=== PATIENT | female | born 2000 | race Caucasian/White ===

== ENCOUNTER 2018-06-06 16:40 | Outpatient (CLI) | payer MEDICAID, SELFPAY ==
[2018-06-06 17:04] VITALS: BMI 61.8
[2018-06-06 17:55] LABS: Hematocrit 32.1 % (37-47); Hemoglobin 10.9 g/dl (12.0-15.0); Mean Corpuscular Hgb 29.1 pg (27.0-32.0); Mean Corpuscular Volume 85.6 fL (81-99); Mean Platelet Vol. 11.2 fl (6.2-12.0); Platelet Count 205 K/mm3 (150-450); RBC Distribution Width CV 13.4 % (11.6-14.6); RBC Distribution Width SD 41.6 fl (35.1-43.9); Red Blood Count 3.75 M/mm3 (4.2-5.4); White Blood Count 7.6 K/mm3 (4.4-11.0)
[2018-06-06 18:06] LABS: Scan Indicated on CBC? Y/N NO
--- NOTE | 2018-06-06 18:27 | OB.TRI.NOTE ---
History of Present Illness Date of Service: 06/06/18 Was patient seen by the physician?: Yes Reason For Visit: R/O PREECLAMPSIA Date of Service: 06/06/18 Final FE: 07/08/18 Final FE Source: US <20 weeks Gestational age: 35 Weeks and 3 Days History of Present Illness: 18yo @ 35.3 wks here with complaints of Headache and vomiting. pt was seen in ER and sent to L&D for evaluation. pt reports headache is frontal between her eyes. denies changes with vision and URI symptoms. Pt reports good FM. denies VB, LOF, contractions- denies any RUQ pain. Allergies No Known Allergies Allergy (Verified 05/22/17 02:15) Laboratory Studies: Laboratory Tests 06/06/18 06/06/18 Range/Units 17:15 17:15 WBC 7.6 (4.4-11.0) K/mm3 RBC 3.75 L (4.2-5.4) M/mm3 Hgb 10.9 L (12.0-15.0) g/dl Hct 32.1 L (37-47) % MCV 85.6 (81-99) fL MCH 29.1 (27.0-32.0) pg MCHC 34.0 (32-36) g/gl RDW 13.4 (11.6-14.6) % RDW Differential 41.6 (35.1-43.9) fl Plt Count 205 (150-450) K/mm3 MPV 11.2 (6.2-12.0) fl PT 13.1 (11.7-14.9) SECONDS INR 1.0 APTT 27.2 (24.1-36.2) Seconds Review of Systems Constitutional: Denies: Anorexia, Malaise Eyes: Reports: Pain. Denies: Blurred vision, Double vision, Vision Change HEENT: Denies: Nasal Congestion, Sinus Congestion Cardiovascular: Denies: Chest Pain Respiratory: Denies: Cough, Shortness of Breath Gastrointestinal: Denies: Abdominal Pain Neurological: Reports: Headaches - frontal. Denies: Blurred vision Physical Exam General: Alert, Oriented x3 Abdomen: Soft, Non Tender, Gravid, - - NO RUQ pain on palpation Neurological: Cranial nerves II-XII grossly intact NST - FHR Rate Baby A Baseline: 130 Variability:: Moderate Accelerations:: 15 x 15 Decelerations:: None NST Reactive:: Yes FHR Category:: Category I Uterine Activity:: no ctx Impression/Plan 18yo @ 35.3 wks c/o headache in 1) pre eclampsia labs drawn 2) monitor VS 3) if VS stable and labs wnl will dc home with follow up in office this week by 06/08/18 for BP check 4) s/sx of PRE E reviewed with patient 5) tylenol 1g q8 hrs reviewed for Headache 6) NST reactive and category 1
[2018-06-06 18:29] LABS: Partial Thromboplast Time 27.2 Seconds (24.1-36.2); Prothrombin Time (Protime)PT. 13.1 SECONDS (11.7-14.9)
[2018-06-06 18:30] LABS: AST(SGOT) 8 U/L (15-37); Alanine Aminotransfer ALT/SGPT 11 U/L (13-56); Creatinine, Serum 0.41 mg/dL (0.55-1.02); EST Glomerular Filtration Rate 210 mL/min (>60); Est Glom Filt Rate - Afr Amer 254 mL/min (>60); Uric Acid 5.1 mg/dL (2.6-6.0)
[2018-06-06 18:30] LABS: Protein, Urine (Random) 14.3 mg/dL (<11.9); Protein:Creat Ratio 231 mg/g CRE (0-200)
== END 2018-06-06 19:00 | disposition home or self-care (01) ==
LOC: WPOUT 16:49 → WP 16:49
PROVIDERS: Family Provider Pediatrics; PCP Pediatrics; Referring Provider Obstetrics & Gynecology; Visit Provider Obstetrics & Gynecology
DX: O26.893 Other specified pregnancy related conditions, third trimester (principal); R51 Headache; O21.9 Vomiting of pregnancy, unspecified; Z3A.35 35 weeks gestation of pregnancy
CPT/HCPCS: 36415; 59025; 59050; 82565; 82570; 84156; 84450; 84460; 84550; 85027; 85610; 85730; 99218; G0378

== ENCOUNTER 2018-06-22 14:30 | Inpatient (IN) | payer MEDICAID, SELFPAY ==
[2018-06-22] MEDS: Lactated Ringers 1,000 ML 50 ML IV (14:00)
[2018-06-22 16:03] LABS: Protein, Urine (Random) 33.7 mg/dL (<11.9); Protein:Creat Ratio 205 mg/g CRE (0-200)
[2018-06-22 16:24] LABS: Hemoglobin 10.4 g/dl (12.0-15.0); Mean Corp Hgb Conc 33.5 g/gl (32-36); Mean Corpuscular Hgb 29.1 pg (27.0-32.0); Mean Corpuscular Volume 86.6 fL (81-99); Mean Platelet Vol. 11.8 fl (6.2-12.0); Platelet Count 178 K/mm3 (150-450); RBC Distribution Width CV 13.5 % (11.6-14.6); RBC Distribution Width SD 42.7 fl (35.1-43.9); Red Blood Count 3.58 M/mm3 (4.2-5.4); Scan Indicated on CBC? Y/N NO; White Blood Count 6.1 K/mm3 (4.4-11.0)
[2018-06-22 16:26] LABS: AST(SGOT) 10 U/L (15-37); Alanine Aminotransfer ALT/SGPT 16 U/L (13-56); Creatinine, Serum 0.51 mg/dL (0.55-1.02); EST Glomerular Filtration Rate 162 mL/min (>60); Est Glom Filt Rate - Afr Amer 196 mL/min (>60); Uric Acid 6.1 mg/dL (2.6-6.0)
[2018-06-22 16:27] LABS: Partial Thromboplast Time 27.5 Seconds (24.1-36.2)
--- NOTE | 2018-06-22 17:54 | HP.PCM_ITS ---
- Problem List (1) Obesity complicating Status: Acute (2) Gestational HTN Status: Acute (3) Positive GBS test Status: Acute (4) Anxiety during Status: Acute (5) Cystic fibrosis carrier Status: Acute (6) Rubella non-immune status, antepartum Status: Acute History Date of Admission: 06/22/18 Final FE: 07/08/18 Final FE Source: US <20 weeks Gestational age: 37 Weeks and 5 Days History of this : This is a 18 year-old, G [1], P [0], at 37w5d weeks gestational age. Presented to office today for visit with elevated BP 140/92, complaint of he adache unrelieved by Tylenol and RUQ pain. Patient has been non compliant with care after 31 weeks with missed appointments. Patient diagnosed with Gestational HTN and sent to L&D for IOL. Allergies No Known Allergies Allergy (Verified 05/22/17 02:15) Home Medications: Home Medications Vits [Prenatabs FA] 1 tablet PO DAILY 06/06/18 Smoking Status: Current some day smoker Alcohol: None Number of Fetus(es): 1 Heart Tracin, moderate variability, accels, no decels, Category 1 FHT TOCO Analysis: None History Past Pregnancies: Past Pregnancies Delivery Date Name GA/Weeks Outcome Route Weight Infant Gender Labor Length Anesthesia Delivery Location Provider FOB Labs: GBS negative HIV negative Rubella non immune RPR negative HBsAG negative AB positive Cystic fibrosis Review of Systems Constitutional: Denies: Chills, Fever, Weight Change Eyes: Denies: Blurred vision, Vision Change HEENT: Reports: Head Aches. Denies: Sinus Congestion, Sinus Drainage Cardiovascular: Denies: Chest Pain, Palpitations Respiratory: Denies: Cough, Shortness of breath at rest, Sputum production Gastrointestinal: Reports: Abdominal Pain - RUQ abdominal tenderness Genitourinary: Denies: Dysuria Neurological: Denies: Numbness, Tingling, Focal weakness Psychiatric: Denies: Anxiety, Depression, Homicidal Ideations, Suicidal Ideations Physical Exam General: Alert, Oriented x3, No apparent distress HEENT: Atraumatic, Normocephalic. Negative for: Thyromegaly, Lymphadenopathy Cardiovascular: Regular rate, Regular Rhythm, No murmurs Lungs: Clear to auscultation, No rhonchi, No wheeze Abdomen: Gravid, Tender - RUQ Extremities:: No edema Neurological: Clonus - +2 beats bilaterally, - - DTR +1/4 and symmetrical Assessment/Plan All Active Problems Obesity complicating (Acute) Gestational HTN (Acute) Positive GBS test (Acute) Anxiety during (Acute) Cystic fibrosis carrier (Acute) Rubella non-immune status, antepartum (Acute) This is a 18 year-old, G [1], P [0], at weeks gestational age. A:Gestational HTN Category 1 FHT P: 1) Admit for medically indicated induction of labor 2) Cytotec for cervical ripening then to start pitocin 3) HELLP labs and urine pro/creat ratio 4) Not preeclamptic at this time. 5) notified about patient status and comanagement of care. Farhana Tamayo APRN, CNM
[2018-06-22 18:20] VITALS: BMI 62.1
[2018-06-22] MEDS: 0.9% Normal Saline 100 ML IV.SOLN. INTRA-UTER (19:49)
[2018-06-22] MEDS: miSOPROStol 25 MCG TABLET PO (19:57)
[2018-06-22] MEDS: morphine 10 MG/ML Syringe 5 MG IM (21:56)
[2018-06-22] MEDS: hydrOXYzine 50 MG/ML Vial 25 MG IM (21:57)
--- NOTE | 2018-06-22 22:03 | PCM.PN.OB ---
Patient Problems: Active and Suspected Problems Obesity complicating (Acute) Gestational HTN (Acute) Positive GBS test (Acute) Anxiety during (Acute) Cystic fibrosis carrier (Acute) Rubella non-immune status, antepartum (Acute) Subjective: Patient very uncomfortable, tearful, and requesting removal of darby bulb catheter in cervix. Friend at bedside. Objective: FHT 135, moderate variability, accels, no decels, Category 1. Previous prolonged decel for 5 minutes down to 100 and returned to baseline. Uterine irritability during decel. Recovered without intervention. TOCO: no contractions, uterine irritability. - Physical Exam Weight: 385 lb 5.888 oz Body Mass Index (BMI) 62.1 Laboratory Tests Past 24 Hrs 06/22/18 06/22/18 06/22/18 15:00 16:00 16:00 WBC 6.1 RBC 3.58 L Hgb 10.4 L Hct 31.0 L MCV 86.6 MCH 29.1 MCHC 33.5 RDW 13.5 RDW Differential 42.7 Plt Count 178 MPV 11.8 PT INR APTT Creatinine Est GFR (MDRD) Af Amer Est GFR (MDRD) Non-Af Uric Acid AST ALT U Random Total Protein 33.7 H Urine Creatinine 164.00 Protein/Creatinin Ratio 205 H Blood Type AB POSITIVE Antibody Screen NEGATIVE 06/22/18 06/22/18 16:00 16:00 WBC RBC Hgb Hct MCV MCH MCHC RDW RDW Differential Plt Count MPV PT 13.0 INR 1.0 APTT 27.5 Creatinine 0.51 L Est GFR (MDRD) Af Amer 196 Est GFR (MDRD) Non-Af 162 Uric Acid 6.1 H AST 10 L ALT 16 U Random Total Protein Urine Creatinine Protein/Creatinin Ratio Blood Type Antibody Screen Medical Necessity - Tobacco Use Smoking Status: Former smoker Assessment/Plan All Active Problems Obesity complicating (Acute) Gestational HTN (Acute) Positive GBS test (Acute) Anxiety during (Acute) Cystic fibrosis carrier (Acute) Rubella non-immune status, antepartum (Acute) A:Gestational HTN, Induction of Labor Category 2 FHT P: 1) Patient tearful, rating pain 10/10 after darby catheter placed and requesting removal. Offered pain medication Morphine 5mg IM once and Vistaril 25mg IM once, if no resolution in pain can remove at that time, patient agreeable to plan 2) notified of prolonged deceleration, reviewed tracing and proceed with plan.
[2018-06-23] VITALS (10 sets, daily range): BP systolic 112–162; BP diastolic 56–94; PULSE 65–90; RESP 18–23; TEMP 36.3–37.1; O2SAT 93–100
[2018-06-23] MEDS: miSOPROStol 25 MCG TABLET PO ×2 (00:04→04:11)
--- NOTE | 2018-06-23 08:42 | PCM.PN.OB ---
Patient Problems: Active and Suspected Problems Obesity complicating (Acute) Gestational HTN (Acute) Positive GBS test (Acute) Anxiety during (Acute) Cystic fibrosis carrier (Acute) Rubella non-immune status, antepartum (Acute) Subjective: Patient recently exited shower. Reports some contractions; there has been difficulties at time monitoring baby. Plan for AROM and placement of internal monitors at this time. Objective: VSS, Afebrile FHT baseline 130, moderate variability, + accels, no decels Ctx q 2-5 minutes, not easily palpable externally. When IUPC placed, ctx picked up and MVU 160-200 SVE = 4/50/-3, AROM for clear fluid - Physical Exam General: Alert, Oriented x3, Cooperative HEENT: Normocephalic Lungs: Normal air movement Cardiovascular: Regular rate, Regular Rhythm Abdomen: Soft, Non Tender, Non-Distended Extremities: No edema Neurological: Cranial nerves II-XII grossly intact, Deep Tendon Reflexes 2+/4 and Symmetrical Psych/Mental Status: Normal Affect, Appropriate, Alert and oriented to time, place, person, mood and affect Weight: 385 lb 5.888 oz Body Mass Index (BMI) 62.1 Intake and Output for Last 24 Hours 06/21/18 06/22/18 06/23/18 23:59 23:59 23:59 Output Total 450 / 450 Balance -450 / -450 Laboratory Tests Past 24 Hrs 06/22/18 06/22/18 06/22/18 15:00 16:00 16:00 WBC 6.1 RBC 3.58 L Hgb 10.4 L Hct 31.0 L MCV 86.6 MCH 29.1 MCHC 33.5 RDW 13.5 RDW Differential 42.7 Plt Count 178 MPV 11.8 PT INR APTT Creatinine Est GFR (MDRD) Af Amer Est GFR (MDRD) Non-Af Uric Acid AST ALT U Random Total Protein 33.7 H Urine Creatinine 164.00 Protein/Creatinin Ratio 205 H Blood Type AB POSITIVE Antibody Screen NEGATIVE 06/22/18 06/22/18 16:00 16:00 WBC RBC Hgb Hct MCV MCH MCHC RDW RDW Differential Plt Count MPV PT 13.0 INR 1.0 APTT 27.5 Creatinine 0.51 L Est GFR (MDRD) Af Amer 196 Est GFR (MDRD) Non-Af 162 Uric Acid 6.1 H AST 10 L ALT 16 U Random Total Protein Urine Creatinine Protein/Creatinin Ratio Blood Type Antibody Screen Medical Necessity - Tobacco Use Smoking Status: Former smoker Assessment/Plan All Active Problems Obesity complicating (Acute) Gestational HTN (Acute) Positive GBS test (Acute) Anxiety during (Acute) Cystic fibrosis carrier (Acute) Rubella non-immune status, antepartum (Acute) 18 y/o @ 37+6wks, IOL for Gest HTN, AROM for Labor Augmentation, Cat I FHT P: 1) Start pitocin if ctx inadequate 2) Back-up physician Dr. Lima and Dr. Tavera updated on patient status 3) Continue present management Lanny SMITH
[2018-06-23] MEDS: Oxytocin 30 units/NS 500 ml 30 UNITS/500 ML IV.SOLN IV (09:25)
[2018-06-23] MEDS: Nalbuphine 10 MG/ML Ampul IV (10:32)
[2018-06-23] MEDS: Lactated Ringers 1,000 ML 50 ML IV ×3 (10:35→18:34)
[2018-06-23] MEDS: fentaNYL-bupivacaine (epidural) 100 ML BAG EPIDURAL ×2 (12:33→16:18)
--- NOTE | 2018-06-23 12:58 | PCM.PN.OB ---
Patient Problems: Active and Suspected Problems Obesity complicating (Acute) Gestational HTN (Acute) Positive GBS test (Acute) Anxiety during (Acute) Cystic fibrosis carrier (Acute) Rubella non-immune status, antepartum (Acute) Subjective: Patient comfortable after receiving epidural - on last cervical exam at 11:40am patient was noted to be 7-8/80/-3 by nursing staff. Patient denies any other complaints or concerns. Objective: VSS, Afebrile. Most BPs in 130-140/80s. Most recent blood pressure 152/76. FHT 130 baseline, moderate variability, + accels, no decels Ctx q 2-5 minutes, pitocin at 6 milliunits with plan to increase to 8 milliunits shortly SVE = deferred - will reassess with placement of urinary darby catheter - Physical Exam General: Alert, Oriented x3, Cooperative HEENT: Atraumatic, Normocephalic Neck: Supple Lungs: Normal air movement Cardiovascular: Regular rate Abdomen: Soft, Non Tender, Obese Skin: No rashes Musculoskeletal: No Tenderness to Palpation of Joints or Extremities Neurological: Cranial nerves II-XII grossly intact Psych/Mental Status: Appropriate, Flat Affect, Alert and oriented to time, place, person, mood and affect Weight: 385 lb 5.888 oz Body Mass Index (BMI) 62.1 Intake and Output for Last 24 Hours 06/21/18 06/22/18 06/23/18 23:59 23:59 23:59 Output Total 450 / 450 Balance -450 / -450 Laboratory Tests Past 24 Hrs 06/22/18 06/22/18 06/22/18 15:00 16:00 16:00 WBC 6.1 RBC 3.58 L Hgb 10.4 L Hct 31.0 L MCV 86.6 MCH 29.1 MCHC 33.5 RDW 13.5 RDW Differential 42.7 Plt Count 178 MPV 11.8 PT INR APTT Creatinine Est GFR (MDRD) Af Amer Est GFR (MDRD) Non-Af Uric Acid AST ALT U Random Total Protein 33.7 H Urine Creatinine 164.00 Protein/Creatinin Ratio 205 H Blood Type AB POSITIVE Antibody Screen NEGATIVE 06/22/18 06/22/18 16:00 16:00 WBC RBC Hgb Hct MCV MCH MCHC RDW RDW Differential Plt Count MPV PT 13.0 INR 1.0 APTT 27.5 Creatinine 0.51 L Est GFR (MDRD) Af Amer 196 Est GFR (MDRD) Non-Af 162 Uric Acid 6.1 H AST 10 L ALT 16 U Random Total Protein Urine Creatinine Protein/Creatinin Ratio Blood Type Antibody Screen Medical Necessity - Tobacco Use Smoking Status: Former smoker Assessment/Plan All Active Problems Obesity complicating (Acute) Gestational HTN (Acute) Positive GBS test (Acute) Anxiety during (Acute) Cystic fibrosis carrier (Acute) Rubella non-immune status, antepartum (Acute) 18 y/o @ 37.6 wks, IOL for GHTN, Transition Stage of Labor, Category I FHT P: 1) Continue present management 2) Anticipate Lanny SMITH
[2018-06-23] MEDS: Ondansetron 4 MG/2 ML Vial IV ×2 (16:04→19:20)
--- NOTE | 2018-06-23 17:06 | PCM.PN.OB ---
Patient Problems: Active and Suspected Problems Obesity complicating (Acute) Gestational HTN (Acute) Positive GBS test (Acute) Anxiety during (Acute) Cystic fibrosis carrier (Acute) Rubella non-immune status, antepartum (Acute) Subjective: Patient continues to rest at this time. Upon nursing assessment with placement of urinary catheter after epidural, patient's cervix only noted to be 4-5cm and head now ballotable. Infrequent prolonged decelerations have also started to occur. Dr. Tavera back-up OB consulted about this patient. Objective: FHT baseline 120, moderate variability, + accels, infrequent prolonged decels with lora to 90-110 x 3-6 minutes with spontaneous routine to baseline with position change and fluid bolus. Ctx q 1-6 minutes, irregular pattern noted. Not adequate at this time. SVE = 4/70/-3, ballotable per Dr. Tavera assessment at 1555 - Physical Exam General: Alert, Oriented x3 Neck: Supple Lungs: Normal air movement Cardiovascular: Regular rate, Regular Rhythm Abdomen: Soft, Non Tender, Obese Extremities: Capillary Refill Less than 3 Seconds, No Calf Tenderness Neurological: Cranial nerves II-XII grossly intact, Deep Tendon Reflexes 2+/4 and Symmetrical Psych/Mental Status: Appropriate, Flat Affect, Alert and oriented to time, place, person, mood and affect Weight: 385 lb 5.888 oz Body Mass Index (BMI) 62.1 Intake and Output for Last 24 Hours 06/21/18 06/22/18 06/23/18 23:59 23:59 23:59 Output Total 450 / 450 Balance -450 / -450 Medical Necessity - Tobacco Use Smoking Status: Former smoker Assessment/Plan All Active Problems Obesity complicating (Acute) Gestational HTN (Acute) Positive GBS test (Acute) Anxiety during (Acute) Cystic fibrosis carrier (Acute) Rubella non-immune status, antepartum (Acute) 18 y/o @ 37.2, IOL for GHTN, Category II FHT P: 1) Continue with titration of pitocin for adequate contractions 2) If continued prolonged decels noted - consider moving forward with primary LTCS 3) Dr. Tavera updated on patient status Lanny Everett APRN-[facility]
[2018-06-23] MEDS: Sodium Citrate/Citric Acid 30 ML UDC PO (18:35)
--- NOTE | 2018-06-23 18:35 | PCM.PN.BLA ---
Progress Note Addendum: Pitocin was increased to 9 milliunits before additional prolonged deceleration x 3 minutes with lora to 90s noted. FHT spontaneously recovered with position change. Dr. Tavera consulted. SVE = 3-4/70/-4 and ballotable. Presenting part is no longer engaged and against cervix. Decision made to progress with Primary LTCS. Transfer to medical management at this time.
[2018-06-23] MEDS: Oxytocin 30 units/NS 500 ml 30 UNITS/500 ML IV.SOLN 167 UNITS IV (19:07)
--- NOTE | 2018-06-23 19:52 | OP.PCM_ITS ---
Delivery Classification: SUDHA Final FE: 07/08/18 Gestational age: 37 Weeks and 6 Days Indications for : - - prolonged decelerations remote from delivery, intolerance of labor Description of Procedure: The patient was taken to the operating room. She was prepped and draped in the dorsal supine position with a leftward tilt. The pannus was strapped back with Villaseñor straps. A Pfannenstiel skin incision was made approximately 2 cm above the symphysis pubis and carried through to underlying layer fascia with the scalpel. The fascia was incised incised in the midline and extended laterally with the Aguirre scissors. The fascia was dissected off the rectus muscles with blunt and sharp dissection. The rectus muscles were in the midline and the peritoneum was entered bluntly. The peritoneal incision was stretched and the bladder blade was placed. The uterine incision was made in a low transverse fashion with the scalpel and extended superiorly and inferiorly with blunt dissection. The amniotic membranes were ruptured bluntly and clear amniotic fluid returned. The infant's head was brought to the incision in the flexed position and delivered without difficulty. The remainder of the was delivered with gentle traction and fundal pressure in the standard fashion. The mouth and nares were bulb suctioned. The cord was clamped and cut as the infant was stimulated. Cord clamping was delayed. The infant was handed off to the waiting nursing staff. The placenta was delivered with fundal massage and gentle traction in the standard fashion. The Herbie O retractor was placed and care was taken to ensure that the abdominal contents were not trapped beneath it. It was secured down. The uterus was left in situ. The uterine incision was closed with #1 Vicryl in a running locked fashion. A second layer of the same suture was used in an imbricating fashion. Several [id number] sutures were needed to control some bleeding from the sinuses. The incision was examined and was found to be hemostatic. The adnexal areas were examined and found to be normal. The uterine incision was reexamined and found to be hemostatic. Some Marcelo was placed over the uterine incision. The rectus muscles were examined and any bleeding was Bovie cauterized. The parietal peritoneum and rectus blocks were closed en bloc with a #1 PDS suture in a running fashion. The surgical teams outer gloves were then changed. The rectus fascia was examined and any bleeding was Bovie cauterized and the rectus fascia was closed with loop #1 PDS suture in a running standard f ashion. The subcutaneous tissue was examining and any bleeding was Bovie cauterized. Some Marcelo was placed over every layer and in the subcutaneous tissue. The subcutaneous tissue was reapproximated with 3-[address] Alarcon. The skin was closed in a subcuticular fashion by Dr. Alarcon.. I performed the remainder of the procedure with assistance. All sponge, lap, and needle counts were correct. The patient was taken to her room for recovery in a stable condition. Amniotic Membrane Rupture Type: Artificial Amniotic Fluid Description: Clear Placenta Disposition: [facility] Drain: Caruso to straight drain Fluids Replaced: LR Cord Entanglement: Around neck x 1, loose Nuchal Cord Compression: Without compression Cord Vessel Description: 3 Vessels Esitmated Blood Loss (ml): 1000 Gender: Male (1 minute): 8 (5 minute): 9 Delayed cord clamping: Yes Pre-op Antibiotic Given: - - ancef 3 gm and zithromax Complications: None - Admit VTE Documentation VTE Present on Admission: No VTE Mechan Device Prophylaxis: SCD's VTE Pharm Prophylaxis ordered?: Yes
[2018-06-23] MEDS: Ketorolac 30 MG/ML Syringe IV (20:15)
[2018-06-23] MEDS: HYDROmorphone 1 MG/ML Syringe IV (22:04)
[2018-06-23] MEDS: oxyCODONE 5 MG Tablet PO (23:57)
[2018-06-24] MEDS: Lactated Ringers 1,000 ML 100 ML IV (00:40)
[2018-06-24 01:38] VITALS: BP 126/70; PULSE 72; RESP 20; O2SAT 96
[2018-06-24] MEDS: 0.9% Saline Lock 10 ML Syringe IV ×4 (02:45→20:15)
[2018-06-24] MEDS: Ketorolac 30 MG/ML Syringe IV ×4 (02:45→20:15)
[2018-06-24 03:51] VITALS: BP 114/54; PULSE 87; RESP 16; TEMP 36.8; O2SAT 94
[2018-06-24] MEDS: Enoxaparin 60 MG/0.6 ML Syringe SC (05:07)
--- NOTE | 2018-06-24 05:43 | NURSING ---
epidural catheter removed at this time. blue tip intact. no complaints of pain and no bleeding noted.
[2018-06-24 07:52] LABS: Hematocrit 27.4 % (37-47); Hemoglobin 9.2 g/dl (12.0-15.0); Mean Corp Hgb Conc 33.6 g/gl (32-36); Mean Corpuscular Hgb 29.1 pg (27.0-32.0); Mean Corpuscular Volume 86.7 fL (81-99); Mean Platelet Vol. 11.3 fl (6.2-12.0); Platelet Count 149 K/mm3 (150-450); RBC Distribution Width CV 13.7 % (11.6-14.6); RBC Distribution Width SD 43.6 fl (35.1-43.9); Red Blood Count 3.16 M/mm3 (4.2-5.4); White Blood Count 7.1 K/mm3 (4.4-11.0)
[2018-06-24 07:53] LABS: Scan Indicated on CBC? Y/N NO
[2018-06-24 08:00] VITALS: BP 109/52; PULSE 86; RESP 16; TEMP 36.9; O2SAT 98
[2018-06-24] MEDS: HYDROmorphone 1 MG/ML Syringe IV ×2 (08:31→13:45)
[2018-06-24] MEDS: Senna/Docusate Sodium 1 Tablet PO ×2 (08:32→22:28)
--- NOTE | 2018-06-24 08:39 | PCM.PN.OB ---
Patient Problems: Active and Suspected Problems Obesity complicating (Acute) Gestational HTN (Acute) Positive GBS test (Acute) Anxiety during (Acute) Cystic fibrosis carrier (Acute) Rubella non-immune status, antepartum (Acute) Subjective: Patient can waning of pain this morning. Denies nausea vomiting. Tolerating oral fluids and some regular diet. No headache or visual changes. - Physical Exam General: Alert, Cooperative, No apparent distress Abdomen: Soft, Non-Distended, Obese - Large pannus, Tender - Appropriate Extremities: Edema - 1+ Skin: Incision - Bandages clean dry and intact Vital Signs Temp Pulse Resp BP Pulse Ox 98.2 F 87 16 114/54 L 94 06/24/18 03:51 06/24/18 03:51 06/24/18 03:51 06/24/18 03:51 06/24/18 03:51 Oxygen Flow Rate (L/min) 2 Oxygen Delivery Method Room Air Weight: 174.8 kg Body Mass Index (BMI) 62.1 Intake and Output for Last 24 Hours 06/22/18 06/23/18 06/24/18 23:59 23:59 23:59 Intake Total 5039 / 5039 798 / 798 Output Total 1450 / 1450 500 / 500 Balance 3589 / 3589 298 / 298 Laboratory Tests Past 24 Hrs 06/24/18 07:42 WBC 7.1 RBC 3.16 L Hgb 9.2 L Hct 27.4 L MCV 86.7 MCH 29.1 MCHC 33.6 RDW 13.7 RDW Differential 43.6 Plt Count 149 L MPV 11.3 Medical Necessity - Tobacco Use Smoking Status: Former smoker Assessment/Plan All Active Problems Obesity complicating (Acute) Gestational HTN (Acute) Positive GBS test (Acute) Anxiety during (Acute) Cystic fibrosis carrier (Acute) Rubella non-immune status, antepartum (Acute) 18-year-old 1 para 0 status post primary section. Postoperative day #1. performed for intolerance of labor remote from delivery. Patient complaining of pain. She is getting a dose of IV narcotics to help catch up her pain control now. In addition she is due for her Toradol and receiving this. Discussed with her pain control expectations during her stay. Encouraged ambulation. She is on Lovenox for VT E prophylaxis. Routine care.
[2018-06-24 12:00] VITALS: BP 133/64; PULSE 88; RESP 24; TEMP 36.6
[2018-06-24 16:00] VITALS: BP 121/54; PULSE 88; RESP 24; TEMP 36.6
[2018-06-24] MEDS: oxyCODONE 5 MG Tablet PO ×2 (16:07→22:27)
--- NOTE | 2018-06-24 16:25 | CASEMGMT ---
Social Work Assessment Labor and Delivery Unit Date of Referral: 06-24-2018 Time of Referral: 1330 Referred By: verbal notification by Farhana Gutierrez RN Date of Intervention: 06-24-2018 Time of Intervention: 1530 Reason for Referral: first time mother, history of anxiety, resources History obtained from: medical record, mother of baby (MOB) Phuong Mooney and reported father of baby (FOB) Benson Edmondson Household composition: MOB reports she and FOB just got an apartment and are in the process of moving from FOB's parental home to new apartment. New address is stated to be: [address] [place] [address] , [address], [place] [address]. MOB reports in August a friend by the name of Marychuy will be moving in to help with the baby. MOB reports home situation is safe and adequate. Patient's parent/guardian status: MOB reports has been with FOB for one year. MOB is 18 and FOB is 24. [place] baby is the first child for both parent. to be named Licha Crabtree. MOB denies any safety concerns in this relationship and denies any abuse. MOB does reports FOB has a mental illness and has pushed MOB in when trying to get away when upset, but denies any abuse history or ever feeling threatened by the FOB (this was prior to FOB arriving). FOB reports that he has pushed MOB away when upset, needing to get away, and MOB not knowing at the time that when FOB upset that FOB jack by isolating self and calming down. Medical History: MOB is G1, P0 to 1 after delivering Licha. care started at 7 weeks and appearing regular until about 31 weeks when MOB was having difficulty making it into increased visits (monitoring for blood pressure). MOB with gestational HTN. MOB with obesity. Baby Boy Licha delivered at 37.5 weeks via SUDHA caesarian section. Baby weighed 6 pounds 10 ounces at . ?s 8 and 9 at 1 and 5 minutes of life. Educational Status: MOB is a high school graduate, denies issues with reading, writing, or learning comprehension. Financial Status: FOB works in [employer] at an [employer]. MOB was working at [employer] for part of . MOB reports plan to return to work but likely not at [place]. MOB reports that finances have been tight during this which has been a stress. Supplies: MOB and FOB report to have needed supplies to get started including crib, pack-n-play, car seat, clothing, diapers, wipes, and has a breast pump on order. Childcare/Caregiver(s): MOB and when MOB returns to work MOB and FOB plan to have roommate Marychuy help with baby care. Transportation: MOB has a car, but it is broken down. FOB and MOB?s father will be working on fixing this. There is family to help if needed. Programs/Agencies Involved: MOB has medical through [facility]. No food stamps for as MOB is sanctioned due to alleged fraud for past food stamp benefits. FOB has food stamps however and will add baby to FOB?s case. MOB has WIC. MOB and FOB both report agreement to a [facility] referral. FOB reports to be an active client with [facility]. MOB references [facility] as an agency in [place] that can go to for extra help with diapers if needed. Children Services/Legal Issues: MOB denies any legal issues for self. FOB reports history of felony from ?years ago? when young. MOB reports this was for possession of marijuana. FOB has no reported active or pending charges. MOB denies any history of children services involvement for self or for FOB. Behavioral Health Issues: Mental Health History: MOB reports have never formally been diagnosed with depression or anxiety. FOB interjected that has been worried about MOB developing depression, due to how stressed MOB has been this . Noted that during MOB had an [place] Depression Screen with a score of 15 on 04-12-18, identifying much stress due to situational issues. Today MOB?s rescreen is at a 10. MOB denies any history of thoughts of harm to self or others, denies any thoughts, plans, intent for suicide. Substance Use History: MOB denies any history of alcohol use or illicit drug use or abuse, nor any use in . MOB reports tried smoking tobacco for a couple of months but does not identify as a current smoker. Maternal Family History: MOB denies any family history. Drug Screens: maternal drug screen negative on 12-31-17. Family/Social Stressors: MOB reports was unplanned and initially was feeling stress over the , had considered termination. MOB reports she and FOB talked and MOB decided that wanted to keep and parent the baby. MOB reports that has no regrets in decision to keep Rohin. MOB and FOB were living with FOB?s parents for about 6-7 months and this was a bit stressful, limited finances trying to get things saved up to be on own. MOB was not working recently, so money has been tight. MOB reports a strained relationship with MOB?s mother, but that things are improving recently, and that MOB?s mother has helped to purchase many things for MOB?s new home. MOB reports it is also sometimes stressful to ask for help from others, but does so as knows that needs help at times. TERRENCE does have reported diagnosis of Bipolar disorder but is under the treatment of [facility]. FOB reports to struggle with suicidal thoughts but denies intent or action; reporting this is why medicine is currently be changed. FOB denies any current mood instability, reports to take medicine as prescribed. Reports to feel safe, is future oriented (working, baby, new apartment, and intent on working with mental health agency to situate medication regiment). FOB reports most irritability comes from conflict with adult males, not with children or women. FOB reports to be happy right now and excited about the baby. TERRENCE reports his mother has schizophrenia (and on medication). TERRENCE?s dad with likely PTSD from the . Support Systems: MOB reports that FOB is strongest support person, that can talk to FOB about most things. MOB and FOB both identify their parents as people to help when needed. TERRENCE?s sister has two children and is a support. Friend Marychuy will be moving in to help at home as well as with Licha. At discharge, MOB is going to parental home for recovery after surgery. ASSESSMENT: MOB pleasant and cooperative with social work manager. Baby skin to skin for duration of social work visit. MOB looked at baby intermittently. At onset of assessment this advertising writer alone with MOB, and MOB made comment that wished FOB was present have MOB and FOB have been going through everything together. MOB agreeable to talk to social work manager without FOB, though FOB did later join and then had to leave midway through conversation to go to work. FOB also pleasant and cooperative, talkative and sharing information. FOB willing to openly share about own mental health and to be working with [facility] on finding the right medicine for diagnosis of Bipolar Disorder. FOB was respectful towards MOB, calm in demeanor and polite. After FOB left again, revisited how MOB feels safety pham with FOB and MOB maintains to feel that FOB is a good support, denies any safety concerns. Talked with MOB about being proactive with own emotional health, considering medicine or counseling for symptoms of depression and anxiety. MOB indicates that not yet ready to decide but to know some options for counseling should MOB decide to seek out any additional support in the future. Educated MOB to risks for depression, anxiety, importance of self-care as well as care for baby. MOB reports that feels much better after crying and listens to music to relieve stress. MOB reports on a scale of 1-10 with 10 being the happiest, mood is currently a 9. On same scale with 10 being high anxiety, MOB rating anxiety as a 2 or 3 (so low anxiety currently). MOB reports to have needed supplies for baby, to have support available and in fact will be taking the baby to MOB?s parental home to convalesce for a few weeks after recovery from surgery (new apartment is 3 flights to apartment). MOB and FOB both stating agreement to have a [facility] referral. FOB reports to be familiar with [facility] from FOB?s sister and this has been a helpful program. Overall the family seems to have what they need to care for baby. No voiced concerns by nursing about how MOB or FOB have been handling the baby, though MOB has had a hard time with moving self around since having surgery. FOB is active in mental health treatment and appropriate acting with this advertising writer, MOB and towards the baby; MOB?s mental health symptoms have decreased since first screening during and MOB reports awareness of where to turn if symptoms increase. MOB affect was full, eye contact good, and mood seeming appropriate but a bit anxious during conversation with this advertising writer. MOB did appear to become sleepy at the end of social work visit as seemed to be zoning off, eyes a bit droopy, but still engaged with this advertising writer as starting to become sleepy. MOB able to give appropriate response to shaken baby prevention as well as safe sleeping. Noted in record that MOB was found sleeping with the baby once, though no additional incidents noted after education. MOB reports to have a connection with baby and no regrets in decision to keep and parent the baby. PLAN: MOB and baby to home with [facility] referral in place. [facility] resources given, though MOB appearing to know about resources in [facility] already as MOB commenting on programs that can go to if needed. depression packet given, including education on local and online resources. [facility] referral submitted today via the [facility]?s secure website. No other services requested or indicated though if new concerns arise prior to discharge social work can be reconsulted. -MÓNICA Frye, DESCRIPTIVE CATALOG LIBRARIAN
--- NOTE | 2018-06-24 19:20 | NURSING ---
Addendum for 06/23/18 @ 1855 FHR after spinal 128
[2018-06-24 19:40] VITALS: BP 139/77; PULSE 107; RESP 19; TEMP 37.4; O2SAT 97
[2018-06-24] MEDS: Acetaminophen 500 MG Tablet 1000 MG PO (20:15)
[2018-06-25 02:17] VITALS: BP 115/54; PULSE 92; RESP 24; TEMP 36.8; O2SAT 97
[2018-06-25] MEDS: 0.9% Saline Lock 10 ML Syringe IV (02:17)
[2018-06-25] MEDS: Ketorolac 30 MG/ML Syringe IV ×2 (02:17→08:50)
[2018-06-25] MEDS: oxyCODONE 5 MG Tablet PO ×3 (03:05→17:27)
[2018-06-25 05:12] LABS: Hematocrit 26.4 % (37-47); Hemoglobin 8.7 g/dl (12.0-15.0); Mean Corpuscular Hgb 29.4 pg (27.0-32.0); Mean Corpuscular Volume 89.2 fL (81-99); Mean Platelet Vol. 11.5 fl (6.2-12.0); Platelet Count 151 K/mm3 (150-450); RBC Distribution Width CV 13.9 % (11.6-14.6); Red Blood Count 2.96 M/mm3 (4.2-5.4); Scan Indicated on CBC? Y/N NO; White Blood Count 7.2 K/mm3 (4.4-11.0)
[2018-06-25] MEDS: Enoxaparin 60 MG/0.6 ML Syringe SC (06:17)
--- NOTE | 2018-06-25 08:57 | PCM.PN.BLA ---
Progress Note Date of service: 06/25/18. At bedside in afternoon to check on patient. She was sitting up eating dinner. Denied any complaints. Pain was well controlled. Denied nausea or vomiting. Ambulating voiding without difficulty. Afebrile and vital signs stable General: No apparent distress, comfortable, well-appearing Abdomen: Soft, nontender, fundus difficult to palpate given body habitus, incision covered by bandage and bandage clean, no surrounding erythema or swelling around the bandage, minimal swelling and erythema in the dependent portion of the patients pannus LE: Non-tender A/P: - Routine PO care
[2018-06-25 09:06] VITALS: BP 122/64; PULSE 85; RESP 16; TEMP 37.2; O2SAT 97
[2018-06-25] MEDS: Senna/Docusate Sodium 1 Tablet PO ×2 (10:19→22:46)
[2018-06-25] MEDS: Docusate Sodium 100 MG Capsule PO (10:19)
[2018-06-25 14:52] VITALS: BP 121/64; PULSE 99; RESP 16; TEMP 36.9; O2SAT 99
[2018-06-25] MEDS: Naproxen 250 MG Tablet PO (16:22)
[2018-06-25 19:35] VITALS: BP 121/51; PULSE 95; RESP 20; TEMP 36.6; O2SAT 98
[2018-06-26 02:53] VITALS: BP 117/53; PULSE 92; RESP 20; TEMP 36.7; O2SAT 97
[2018-06-26] MEDS: oxyCODONE 5 MG Tablet PO ×2 (06:04→11:57)
[2018-06-26] MEDS: Enoxaparin 60 MG/0.6 ML Syringe SC (06:15)
[2018-06-26 08:15] VITALS: BP 126/60; PULSE 87; RESP 18; TEMP 36.3; O2SAT 97
--- NOTE | 2018-06-26 08:59 | PN_ITS ---
Progress Note Date of service: 06/25/18. At bedside in afternoon to check on patient. She was sitting up eating dinner. Denied any complaints. Pain was well controlled. Denied nausea or vomiting. Ambulating voiding without difficulty. Afebrile and vital signs stable General: No apparent distress, comfortable, well-appearing Abdomen: Soft, nontender, fundus difficult to palpate given body habitus, incision covered by bandage and bandage clean, no surrounding erythema or swelling around the bandage, minimal swelling and erythema in the dependent por tion of the patients pannus LE: Non-tender A/P: - Routine PO care
--- NOTE | 2018-06-26 09:01 | PCM.PN.OB ---
Patient Problems: Active and Suspected Problems Obesity complicating (Acute) Gestational HTN (Acute) Positive GBS test (Acute) Anxiety during (Acute) Cystic fibrosis carrier (Acute) Rubella non-immune status, antepartum (Acute) Subjective: Patient doing well this morning. Denies any pain. Tolerating regular diet without nausea or vomiting. Lochia normal. Denies headache, vision changes, upper abdominal pain, lightheadedness, dizziness, chest pain, shortness of breath, leg pain. She desires Nexplanon to be placed. Ambulating and spontaneously voiding without difficulty. Positive flatus. - Physical Exam General: Alert, Oriented x3 HEENT: Atraumatic Lungs: - - No increased resp effort Abdomen: Soft, Non Tender, - - Obese, bandage clean and intact, no errythema or swelling around bandage, edema present at dependent portion of pannus Extremities: No edema, No Calf Tenderness Skin: No rashes Neurological: Neuro grossly intact Psych/Mental Status: Normal Affect, Appropriate Vital Signs Temp Pulse Resp BP Pulse Ox 97.4 F L 87 18 126/60 H 97 06/26/18 08:15 06/26/18 08:15 06/26/18 08:15 06/26/18 08:15 06/26/18 08:15 Oxygen Flow Rate (L/min) 2 Oxygen Delivery Method Room Air Weight: 385 lb 5.888 oz Body Mass Index (BMI) 62.1 Intake and Output for Last 24 Hours 06/24/18 06/25/18 06/26/18 23:59 23:59 23:59 Intake Total 1398 / 1398 Output Total 1100 / 1100 500 / 500 Balance 298 / 298 -500 / -500 Medical Necessity - Tobacco Use Smoking Status: Former smoker Assessment/Plan All Active Problems Obesity complicating (Acute) Gestational HTN (Acute) Positive GBS test (Acute) Anxiety during (Acute) Cystic fibrosis carrier (Acute) Rubella non-immune status, antepartum (Acute) POD#2 s/p PLTCS for failure to progress and gHTN - gHTN: No pre-e symptoms this morning. BP normal - Doing well - Pt desires Nexplanon. Will place this AM - Dispo: Routine PO care
[2018-06-26] MEDS: Etonogestrel 68 MG IMPLANT SQ (09:16)
--- NOTE | 2018-06-26 09:36 | PCM.OP.BLANK ---
Problem List (1) Nexplanon insertion Status: Acute Operative Report Date of Procedure: 06/26/18 Reviewed risks, benefits, alternatives of the Nexplanon and patient signed consent. Reviewed irregular bleeding profile with the Nexplanon in place. Insertion site was selected 10 cm from the patient's left medial epicondyle. Area was cleansed with chlorhexidine solution and allowed to dry. 3cc of 1% lidocaine was inserted along the Nexplanon insertion site. Nexplanon trocar was inserted subcutaneously and the Nexplanon was delivered subcutaneously. The trocar was removed from insertion site. Nexplanon was palpated to be in correct position. Steri-Strips were placed over the insertion site. Pressure dressing was placed. The patient was given the Nexplanon card noting insertion date and removal date. Patient tolerated the procedure.
[2018-06-26] MEDS: Ferrous Sulfate 325 MG Tablet PO (11:49)
[2018-06-26] MEDS: Senna/Docusate Sodium 1 Tablet PO (11:50)
[2018-06-26 13:45] VITALS: BP 132/76; PULSE 101; RESP 18; TEMP 36.6; O2SAT 98
[2018-06-26 20:40] VITALS: BP 119/77; PULSE 98; RESP 18; TEMP 37.6; O2SAT 100
[2018-06-27] MEDS: oxyCODONE 5 MG Tablet PO (01:14)
[2018-06-27 01:28] VITALS: BP 147/79; PULSE 102; RESP 18; TEMP 36.3; O2SAT 96
[2018-06-27] MEDS: Enoxaparin 60 MG/0.6 ML Syringe SC (05:46)
[2018-06-27 08:00] VITALS: BP 155/76; PULSE 91; RESP 16; TEMP 36.7
[2018-06-27 12:12] VITALS: BP 138/68; PULSE 84; RESP 16; TEMP 36.6
--- NOTE | 2018-06-27 12:27 | PCM.PN.OB ---
Patient Problems: Active and Suspected Problems Obesity complicating (Acute) Gestational HTN (Acute) Positive GBS test (Acute) Anxiety during (Acute) Cystic fibrosis carrier (Acute) Rubella non-immune status, antepartum (Acute) Nexplanon insertion (Acute) Subjective: Doing well per patient and nursing staff. Ambulating and taking PO without difficulty. Voiding and passing flatus. Bowel movement without difficulty. Denies any headache, visual changes, increased pain, increased vaginal bleeding or clots. and supplementing. Planning D/C today to [facility] status, baby in special care nursery. - Physical Exam General: Alert, Oriented x3, Cooperative HEENT: Atraumatic, Normocephalic Lungs: Clear to auscultation, No rhonchi, No wheeze Cardiovascular: Regular rate, Regular Rhythm, No murmurs Abdomen: Tender, - - Fundus firm 3 below U but difficulty exam due to large pannus. Srugical incision dry and intact, no blood. [place] area to skin around dressing, no signs of infection or dermatitis due to dressing, appears yeast. Extremities: Edema - +1 BLE, non pitting. Beatrice's negative. Neurological: - - DTR+ 1/4 bilaterally, no clonus Psych/Mental Status: Normal Affect, Appropriate Vital Signs Temp Pulse Resp BP Pulse Ox 98 F 84 16 138/68 H 96 06/27/18 12:12 06/27/18 12:12 06/27/18 12:12 06/27/18 12:12 06/27/18 01:28 Oxygen Flow Rate (L/min) 2 Oxygen Delivery Method Room Air Weight: 385 lb 5.888 oz Body Mass Index (BMI) 62.1 Intake and Output for Last 24 Hours 06/25/18 06/26/18 06/27/18 23:59 23:59 23:59 Output Total 500 / 500 Balance -500 / -500 Medical Necessity - Tobacco Use Smoking Status: Former smoker Assessment/Plan All Active Problems Obesity complicating (Acute) Gestational HTN (Acute) Positive GBS test (Acute) Anxiety during (Acute) Cystic fibrosis carrier (Acute) Rubella non-immune status, antepartum (Acute) Nexplanon insertion (Acute) A:POD #4 Primary Section P: 1) Discharge and instructions given. D/C home today 2) Follow up this week for BP check in 3-4 days. 3) Follow up in 2 weeks for incision check 4) Reviewed Pre-e warning signs and when to call. 5) Percocet for pain.
--- NOTE | 2018-06-27 12:31 | PN.OBGYN_ITS ---
Patient Problems: Active and Suspected Problems Obesity complicating (Acute) Gestational HTN (Acute) Positive GBS test (Acute) Anxiety during (Acute) Cystic fibrosis carrier (Acute) Rubella non-immune status, antepartum (Acute) Nexplanon insertion (Acute) Subjective: Doing well per patient and nursing staff. Ambulating and taking PO without difficulty. Voiding and passing flatus. Bowel movement without difficulty. Denies any headache, visual changes, increased pain, increased vaginal bleeding or clots. and supplementing. Planning D/C [facility] to [facility] status, baby in special care nursery. - Physical Exam General: Alert, Oriented x3, Cooperative HEENT: Atraumatic, Normocephalic Lungs: Clear to auscultation, No rhonchi, No wheeze Cardiovascular: Regular rate, Regular Rhythm, No murmurs Abdomen: Tender, - - Fundus firm 3 below U but difficulty exam due to large pannus. Srugical incision dry and intact, no blood. [place] area to skin around dressing, no signs of infection or dermatitis due to dressing, appears yeast. Extremities: Edema - +1 BLE, non pitting. Beatrice's negative. Neurological: - - DTR+ 1/4 bilaterally, no clonus Psych/Mental Status: Normal Affect, Appropriate Vital Signs Temp Pulse Resp BP Pulse Ox 98 F 84 16 138/68 H 96 06/27/18 12:12 06/27/18 12:12 06/27/18 12:12 06/27/18 12:12 06/27/18 01:28 Oxygen Flow Rate (L/min) 2 Oxygen Delivery Method Room Air Weight: 385 lb 5.888 oz Body Mass Index (BMI) 62.1 Intake and Output for Last 24 Hours 06/25/18 06/26/18 06/27/18 23:59 23:59 23:59 Output Total 500 / 500 Balance -500 / -500 Medical Necessity - Tobacco Use Smoking Status: Former smoker Assessment/Plan All Active Problems Obesity complicating (Acute) Gestational HTN (Acute) Positive GBS test (Acute) Anxiety during (Acute) Cystic fibrosis carrier (Acute) Rubella non-immune status, antepartum (Acute) Nexplanon insertion (Acute) A:POD #4 Primary Section P: 1) Discharge and instructions given. D/C home today 2) Follow up this week for BP check in 3-4 days. 3) Follow up in 2 weeks for incision check 4) Reviewed Pre-e warning signs and when to call. 5) Percocet for pain.
--- NOTE | 2018-06-27 12:42 | PCM.DCVAG ---
Discharge Diet: No Restrictions Discharge Activity: May not drive while taking narcotic pain medications., May Shower May resume sexual activity in: 4-6 weeks Weight Bearing Status: Full weight bearing Call your doctor if your incision/area has: Continuous Slow Oozing, Sudden Increased Bleeding, Increased Pain/ Swelling, Increased Redness, Foul Smelling Discharge Call your doctor if you observe: Fever of 101 or Higher, Numbness or Tingling, Inability to urinate, Inability to have a bowel movement, Using more than one pad per hour, Shortness of breath, Chest pain, Increased palpitations (irregular heartbeat), Calf discomfort, Uncontrolled pain Suture Line Care: Avoid Pulling/Pushing Change Dressing in (Days):: 0 Remove Dressing in (days):: 4 Cleanse incision/area with: Soap & Water, Keep Dressing Clean & Dry Additional Instructions: If you experience any of the following, contact your healthcare provider. Bleeding that soaks a pad every hour for 2 hours Fever 100.4 or higher Unrelieved incision or abdominal pain Swelling, redness, discharge or bleeding from your incision or episiotomy site Your incision begins to separate Problems urinating (including inability to urinate or burning while urinating). Visual changes Severe headache Flu-like symptoms Pain or redness in one of both of your breasts Pain, warmth, tenderness or swelling in your legs, especially the calf area Frequent nausea and vomiting Symptoms of depression or anxiety If you experience any of the following, call 911 or go to the nearest Emergency Room. Chest pain Problems breathing Seizure activity Partial or complete paralysis of a body part, slurred speech, weakness or drooping of the face, or a sudden inability to walk or hold your balance Allergies/Adverse Reactions: Allergies No Known Allergies Allergy (Verified 06/22/18 20:02) Medications to take at Discharge Vits [Prenatabs FA] 1 tablet PO DAILY 06/06/18 Please Follow Up With: Jaimie Tavera MD When: If you had elevated Blood Pressure in 3-4 days for a blood pressure check and you will need to be seen in 2 weeks for incision check. Call to make an appointment with your doctor in 6 weeks. Test Results: Test results from this visit will be discussed in further detail at your follow-up appointment, if applicable.
--- NOTE | 2018-06-27 12:45 | DCINST_ITS ---
Discharge Diet: No Restrictions Discharge Activity: May not drive while taking narcotic pain medications., May Shower May resume sexual activity in: 4-6 weeks Weight Bearing Status: Full weight bearing Call your doctor if your incision/area has: Continuous Slow Oozing, Sudden Increased Bleeding, Increased Pain/ Swelling, Increased Redness, Foul Smelling Discharge Call your doctor if you observe: Fever of 101 or Higher, Numbness or Tingling, Inability to urinate, Inability to have a bowel movement, Using more than one pad per hour, Shortness of breath, Chest pain, Increased palpitations (irregular heartbeat), Calf discomfort, Uncontrolled pain Suture Line Care: Avoid Pulling/Pushing Change Dressing in (Days):: 0 Remove Dressing in (days):: 4 Cleanse incision/area with: Soap & Water, Keep Dressing Clean & Dry Additional Instructions: If you experience any of the following, contact your healthcare provider. * Bleeding that soaks a pad every hour for 2 hours * Fever 100.4 or higher * Unrelieved incision or abdominal pain * Swelling, redness, discharge or bleeding from your incision or episiotomy site * Your incision begins to separate * Problems urinating (including inability to urinate or burning while urinating). * Visual changes * Severe headache * Flu-like symptoms * Pain or redness in one of both of your breasts * Pain, warmth, tenderness or swelling in your legs, especially the calf area * Frequent nausea and vomiting * Symptoms of depression or anxiety If you experience any of the following, call 911 or go to the nearest Emergency Room. * Chest pain * Problems breathing * Seizure activity * Partial or complete paralysis of a body part, slurred speech, weakness or drooping of the face, or a sudden inability to walk or hold your balance Allergies/Adverse Reactions: Allergies No Known Allergies Allergy (Verified 06/22/18 20:02) Medications to take at Discharge Vits [Prenatabs FA] 1 tablet PO DAILY 06/06/18 Please Follow Up With: Jaimie Tavera MD When: If you had elevated Blood Pressure in 3-4 days for a blood pressure check and you will need to be seen in 2 weeks for incision check. Call to make an appointment with your doctor in 6 weeks. Test Results: Test results from this visit will be discussed in further detail at your follow- up appointment, if applicable.
--- NOTE | 2018-06-27 12:51 | PCM.DC.SUM ---
Discharge Date and Diagnosis - Problem List Patient Problems: Active and Suspected Problems Obesity complicating (Acute) Gestational HTN (Acute) Positive GBS test (Acute) Anxiety during (Acute) Cystic fibrosis carrier (Acute) Rubella non-immune status, antepartum (Acute) Nexplanon insertion (Acute) Date of Admission: 06/22/18 Date of Discharge: 06/27/18 - Primary Discharge Diagnosis Active and Suspected Problems Obesity complicating (Acute) Gestational HTN (Acute) Positive GBS test (Acute) Anxiety during (Acute) Cystic fibrosis carrier (Acute) Rubella non-immune status, antepartum (Acute) Nexplanon insertion (Acute) Hospital Course and Treatment Operations: - - Section Procedures: None Summary of Care Provided: The patient is a 18 year old F [] Patient Problems: Active and Suspected Problems Obesity complicating (Acute) Gestational HTN (Acute) Positive GBS test (Acute) Anxiety during (Acute) Cystic fibrosis carrier (Acute) Rubella non-immune status, antepartum (Acute) Nexplanon insertion (Acute) - Physical Exam Vital Signs Temp Pulse Resp BP Pulse Ox 98 F 84 16 138/68 H 96 06/27/18 12:12 06/27/18 12:12 06/27/18 12:12 06/27/18 12:12 06/27/18 01:28 Oxygen Flow Rate (L/min) 2 Oxygen Delivery Method Room Air Weight: 385 lb 5.888 oz Body Mass Index (BMI) 62.1 Intake and Output for Last 24 Hours 06/25/18 06/26/18 06/27/18 23:59 23:59 23:59 Output Total 500 / 500 Balance -500 / -500 Discharge Diet: No Restrictions Discharge Activity: May not drive while taking narcotic pain medications., May Shower May resume sexual activity in: 4-6 weeks Weight Bearing Status: Full weight bearing Call your doctor if your incision/area has: Continuous Slow Oozing, Sudden Increased Bleeding, Increased Pain/ Swelling, Increased Redness, Foul Smelling Discharge Call your doctor if you observe: Fever of 101 or Higher, Numbness or Tingling, Inability to urinate, Inability to have a bowel movement, Using more than one pad per hour, Shortness of breath, Chest pain, Increased palpitations (irregular heartbeat), Calf discomfort, Uncontrolled pain Suture Line Care: Avoid Pulling/Pushing Change Dressing in (Days):: 0 Remove Dressing in (days):: 4 Cleanse incision/area with: Soap & Water, Keep Dressing Clean & Dry Home Medications: Medications to take at Discharge Vits [Prenatabs FA] 1 tablet PO DAILY 06/06/18 Ferrous Sulfate 325 mg PO DAILY@1200 tablet 06/27/18 Naproxen [Naprosyn] 250 - 500 mg PO Q8H PRN PRN tablet 06/27/18 Oxycodone HCl/Acetaminophen [Percocet 5/325] 1 - 2 tab PO Q4H PRN PRN 7 Days #20 tab NS 06/27/18 Following Prescrptions Were Given to Patient: Oxycodone HCl/Acetaminophen [Percocet 5/325] 1 - 2 tab PO Q4H PRN PRN 7 Days #20 tab NS PRN Reason: Pain Please Follow Up With: Jaimie Tavera MD Medical Necessity - Tobacco Use Smoking Status: Former smoker Meaningful Use Info Meaningful Use Diagnoses (Choose all that apply): None applicable
[2018-06-27] MEDS: Ferrous Sulfate 325 MG Tablet PO (14:22)
[2018-06-27] MEDS: Naproxen 250 MG Tablet PO (14:28)
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
== END 2018-06-27 14:00 | disposition home or self-care (01) | DRG 540 ==
PROVIDERS: Obstetrics & Gynecology; Admitting Provider Obstetrics & Gynecology; Referring Provider Obstetrics & Gynecology; Visit Provider Obstetrics & Gynecology
DX: O13.3 Gestational [pregnancy-induced] hypertension without significant proteinuria, third trimester (principal); O76 Abnormality in fetal heart rate and rhythm complicating labor and delivery; O69.81X0 Labor and delivery complicated by cord around neck, without compression, not applicable or unspecified; O99.824 Streptococcus B carrier state complicating childbirth; O99.214 Obesity complicating childbirth; Z14.1 Cystic fibrosis carrier; Z91.19 Patient's noncompliance with other medical treatment and regimen; Z87.891 Personal history of nicotine dependence; Z3A.37 37 weeks gestation of pregnancy; Z37.0 Single live birth
CPT/HCPCS: 59025; 59050; 82565; 82570; 84156; 84450; 84460; 84550; 85027; 85610; 85730; 86850; 86900; 99218; J7120; A4216; G0378; J2405

== ENCOUNTER 2018-06-30 15:55 | Outpatient (CLI) | payer MEDICAID, SELFPAY ==
[2018-06-30 16:01] VITALS: BP 132/60; PULSE 77; RESP 18; TEMP 36.6
[2018-06-30 16:05] VITALS: BMI 59.4
[2018-06-30 16:14] VITALS: BP 151/74; PULSE 77; RESP 18
[2018-06-30] MEDS: Labetalol 200 MG Tablet PO (16:49)
[2018-06-30 16:52] LABS: Hematocrit 28.6 % (37-47); Hemoglobin 9.5 g/dl (12.0-15.0); Mean Corp Hgb Conc 33.2 g/gl (32-36); Mean Corpuscular Hgb 29.2 pg (27.0-32.0); Mean Platelet Vol. 10.2 fl (6.2-12.0); Platelet Count 276 K/mm3 (150-450); RBC Distribution Width CV 13.2 % (11.6-14.6); RBC Distribution Width SD 40.2 fl (35.1-43.9); Red Blood Count 3.25 M/mm3 (4.2-5.4); Scan Indicated on CBC? Y/N NO; White Blood Count 6.4 K/mm3 (4.4-11.0)
[2018-06-30 17:04] LABS: AST(SGOT) 15 U/L (15-37); Alanine Aminotransfer ALT/SGPT 16 U/L (13-56); Creatinine, Serum 0.61 mg/dL (0.55-1.02); EST Glomerular Filtration Rate 132 mL/min (>60); Est Glom Filt Rate - Afr Amer 159 mL/min (>60); Uric Acid 6.8 mg/dL (2.6-6.0)
[2018-06-30 17:34] LABS: Protein:Creat Ratio 355 mg/g CRE (0-200)
[2018-06-30 17:50] VITALS: BP 147/70; PULSE 82; RESP 18
[2018-06-30 17:50] LABS: Prothrombin Time (Protime)PT. 13.1 SECONDS (11.7-14.9)
[2018-06-30 17:51] LABS: Partial Thromboplast Time 27.5 Seconds (24.1-36.2)
--- NOTE | 2018-06-30 17:57 | NURSING ---
1630 Mom here for r/o eclampsia and has her breast pump here for pumping. Mom states that baby has been latching and she has been pumping too. We discussed prior breast massage and expression and demonstrated as well. We also discussed adequate hydration and her extra 500 calories to support feeding of breastmilk. Mom encouraged to call if we can be of help to her with feedings and or questions regarding feedings. Karlene LUNDBERG IBCLC
--- NOTE | 2018-06-30 18:19 | NURSING ---
Pt received at 1600 from [facility]'s office for R/o Pre-Eclampsia. BP on admission 132/60, P 77 R 18 T 97.8. Pt denies c/o H/a, visual changes or epigastric pain. Reflexes +2 X 4. Pt denies any increase in swelling of hands, face, or feet. Dr. Alarcon called to clarify admitting orders. See paper order sheet. Bp at 1610 is 151/74,P 77. No acute change in status. Attempted x2 to draw labs
--- NOTE | 2018-06-30 19:21 | NURSING ---
1755 -Dr. Alarcon informed of BP 147/70 one hour post labetalol administration. Orders received for discharge. See paper order sheet
--- NOTE | 2018-06-30 21:42 | OB.TRI.NOTE ---
History of Present Illness Date of Service: 06/30/18 Was patient seen by the physician?: No Reason For Visit: R/O post PREECLAMPSIA Date of Service: 06/30/18 Final FE Source: US <20 weeks Allergies No Known Allergies Allergy (Verified 06/22/18 20:02) Laboratory Studies: Laboratory Tests 06/30/18 06/30/18 06/30/18 Range/Units 17:26 17:15 16:30 WBC (4.4-11.0) K/mm3 RBC (4.2-5.4) M/mm3 Hgb (12.0-15.0) g/dl Hct (37-47) % MCV (81-99) fL MCH (27.0-32.0) pg MCHC (32-36) g/gl RDW (11.6-14.6) % RDW Differential (35.1-43.9) fl Plt Count (150-450) K/mm3 MPV (6.2-12.0) fl PT 13.1 INR 1.0 APTT 27.5 Creatinine 0.61 (0.55-1.02) mg/dL Est GFR (MDRD) Af Amer 159 (>60) mL/min Est GFR (MDRD) Non-Af 132 (>60) mL/min Uric Acid 6.8 H (2.6-6.0) mg/dL AST 15 (15-37) U/L ALT 16 (13-56) U/L U Random Total Protein 19.0 H (<11.9) mg/dL Urine Creatinine 53.50 (NO RANGE EST.) mg/dL Protein/Creatinin Ratio 355 H (0-200) mg/g CRE 06/30/18 06/30/18 Range/Units 16:30 16:30 WBC 6.4 (4.4-11.0) K/mm3 RBC 3.25 L (4.2-5.4) M/mm3 Hgb 9.5 L (12.0-15.0) g/dl Hct 28.6 L (37-47) % MCV 88.0 (81-99) fL MCH 29.2 (27.0-32.0) pg MCHC 33.2 (32-36) g/gl RDW 13.2 (11.6-14.6) % RDW Differential 40.2 (35.1-43.9) fl Plt Count 276 (150-450) K/mm3 MPV 10.2 (6.2-12.0) fl PT Cancelled INR Cancelled APTT Cancelled Creatinine (0.55-1.02) mg/dL Est GFR (MDRD) Af Amer (>60) mL/min Est GFR (MDRD) Non-Af (>60) mL/min Uric Acid (2.6-6.0) mg/dL AST (15-37) U/L ALT (13-56) U/L U Random Total Protein (<11.9) mg/dL Urine Creatinine (NO RANGE EST.) mg/dL Protein/Creatinin Ratio (0-200) mg/g CRE Physical Exam Vitals: Vital Signs Temp Pulse Resp BP 97.8 F 82 18 147/70 H 06/30/18 16:01 06/30/18 17:50 06/30/18 17:50 06/30/18 17:50 Impression/Plan 18yo PPD # 7 s/p Primary cs- elevated BP in office- here to r/o PP PRE ECLAMPSIA 1) sent for observation and labs to r/o PP preeclampsia 2) Slightly elevated Pro/creat ratio- but recently PP with Blood in urine- likely elevated- other labs reviewed- BPs slightly elevated but had Gest HTN, mobribd obesity. Started on Labetalol 200mg BID 3) Pt to return to office wednesday07/04/18 for BP check 4) s/sx of PP PRE E reviewed- stable today- asymptomatic
== END 2018-06-30 18:30 | disposition home or self-care (01) ==
LOC: WPOUT 16:01 → WP 16:02
PROVIDERS: Referring Provider Obstetrics & Gynecology; Visit Provider Obstetrics & Gynecology
DX: O13.5 Gestational [pregnancy-induced] hypertension without significant proteinuria, complicating the puerperium (principal); O99.215 Obesity complicating the puerperium; E66.01 Morbid (severe) obesity due to excess calories
CPT/HCPCS: 36415; 82565; 82570; 84156; 84450; 84460; 84550; 85027; 85610; 85730; 99218; G0378

== ENCOUNTER 2018-07-02 18:59 | Emergency (ER) | payer MEDICAID, SELFPAY ==
[2018-07-02 19:05] VITALS: BP 156/81; PULSE 90; RESP 16; TEMP 36.9; O2SAT 96; BMI 57.9
--- NOTE | 2018-07-02 19:27 | ED.VISSUMM ---
- ER Visit Summary Date of Service: 07/02/18 Chief Complaint: Elevated blood pressure. History of Present Illness: The patient is a 18 F 9 days by presents after discussion with covering OB to go to the ED. Reports elevated blood pressure of 180/81 30 minutes prior to arrival. Patient states that , states was diagnosed gestational hypertension induced close to 38 weeks, however patient failed to progress and up with a . They are monitoring her blood pressure, on follow-up 2 days ago she was seen in OB triage and started on labetalol 100 mg twice daily. She is been taken on last dose was prior to arrival at 630. Checked her blood pressure is 180/81 reports mother spoke with covering OB was sent to the ED and not to triage. Denies headache, visual changes. No chest pains or shortness of breath. No nausea or vomiting. States there is still minimal swelling of her legs, however not increased. No urinary symptoms. Physical Examination: General: Alert and oriented ?3, no acute distress HEENT: Normocephalic, atraumatic. Moist mucosa membranes Neck: supple, nontender. Cardiovascular: Regular rate and rhythm, no murmurs Respiratory: Normal breath sounds, symmetric, no distress Abdomen: Soft, nontender, nondistended Extremities: Nontender, no edema, pulses intact ?4 Neuro: no focal neurological deficits. Test Results: Hemodynamic 0.4 platelets 289. ALT AST 2020. Mild proteins in urine. Uric acid 6.2. Protein creatinine ratio to 19. Emergency Department Course and Treatment: Patient elevated blood pressure . She is asymptomatic. Without intervention blood pressure 142/76. Preeclampsia labs stable actually trending down from 2 days ago with uric acid and protein creatinine urine ratio. Spoke with Lanny Everett gasoline engine assembler covering for Farh[employer] calix. Patient has a follow-up on Wednesday for blood pressure check. Signs and symptoms discussed to return. Treatment Plan: [] Disposition: Discharge Impression: 1. Elevated blood pressure 2. This note was generated with [employer]atter[employer] dictation software. It may contain incorrect words, spelling, and punctuation that were not noted in review of the chart prior to signing ED Disposition - Plan for ED Patient: Disposition: Home or Assisted Living Chief Complaint: Hypertension Diagnosis: Elevated blood pressure , Referrals: Kassandra Coughlin MD [Primary Care Provider] - Additional Instructions: Labs stable trending down. Blood pressure 142/76 on discharge. Keep your appointment on Wednesday for blood pressure check.
--- NOTE | 2018-07-02 19:53 | ED.RN ---
THIS RN ATTEMPTED IV X 2, GREEN TOP TUBE WAS OBTAINED. 3RD RN TO ATTEMPT.
[2018-07-02 20:23] LABS: AST(SGOT) 20 U/L (15-37); Alanine Aminotransfer ALT/SGPT 21 U/L (13-56); Albumin, Serum 2.7 g/dL (3.2-5.0); Alkaline Phosphatase 134 U/L (45-117); Anion Gap 11 (5-15); BUN 16 mg/dL (7-18); BUN/Creat Ratio 22.6 RATIO (10-20); Bilirubin, Direct < 0.05 mg/dL (0.00-0.30); Calcium,Total 8.6 mg/dL (8.5-10.1); Chloride 109 mmol/L (98-107); Creatinine, Serum 0.71 mg/dL (0.55-1.02); EST Glomerular Filtration Rate 112 mL/min (>60); Est Glom Filt Rate - Afr Amer 135 mL/min (>60); Estimated Creatinine Clearance 118.32 ml/min; Globulin 4.4 g/dL (2.2-4.2); Glucose 70 mg/dL (74-106); Potassium 4.3 mmol/L (3.5-5.1); Protein, Total 7.1 g/dL (6.4-8.2); Sodium Level 141 mmol/L (136-145); Uric Acid 6.2 mg/dL (2.6-6.0)
[2018-07-02 20:36] LABS: Absolute Lymphocyte Count 1.74 X10^3/ul (0.83-4.51); Absolute Neutrophil Count 6.1 X10^3/uL (2.0-7.7); Basophil# 0.01 X10^3/uL; Basophil% 0.1 % (0-1); Eosinophil# 0.17 X10^3/uL; Eosinophils% 1.9 % (0-5); Hematocrit 28.2 % (37-47); Hemoglobin 9.4 g/dl (12.0-15.0); Lymphocyte # 1.74 X10^3/ul (4.0); Lymphocyte % 19.6 % (19-41); Mean Corp Hgb Conc 33.3 g/gl (32-36); Mean Corpuscular Hgb 28.7 pg (27.0-32.0); Mean Corpuscular Volume 86.2 fL (81-99); Mean Platelet Vol. 9.9 fl (6.2-12.0); Monocyte% 7.9 % (0-10); Neutrophil # 6.11 X10^3/uL (2.7-7.7); Platelet Count 289 K/mm3 (150-450); RBC Distribution Width CV 13.5 % (11.6-14.6); RBC Distribution Width SD 42.7 fl (35.1-43.9); Red Blood Count 3.27 M/mm3 (4.2-5.4); White Blood Count 8.9 K/mm3 (4.4-11.0)
[2018-07-02 20:37] LABS: POSITIVE COUNT NO; POSITIVE DIFFERENTIAL NO; POSITIVE MORPHOLOGY NO
[2018-07-02 20:50] VITALS: BP 142/76; PULSE 83; RESP 18; O2SAT 97
[2018-07-02 20:53] LABS: Bacteria 0 SEEN /hpf (None Seen); Mucous, Urine 0 SEEN /hpf (<or=2+)
[2018-07-02 20:59] LABS: Color, Urine Yellow (Yellow); Glucose, Dipstick Normal (Normal); Ketone-Dipstick Negative (Negative); Leukocyte Esterase-Dipstick 25 /ul (Negative); Nitrite-Dipstick Negative (Negative); Occult Blood-Urine 250 /ul (Negative); Protein-Dipstick 30 mg/dl (Negative); Specific Gravity, Urine 1.015 (1.002-1.030); Urine Bilirubin Dipstick Negative (Negative); Urine Clarity Clear (Clear); Urine Urobilinogen Normal (Normal)
[2018-07-02 21:10] LABS: Red Blood Cells-Urine 0-5 SEEN /hpf (0-5); White Blood Cells 5-10 SEEN /hpf (0-5)
[2018-07-02 21:11] LABS: Squamous Epithelial Cells - UA 0-5 SEEN /hpf (5-10)
[2018-07-02 21:27] LABS: Protein, Urine (Random) 25.1 mg/dL (<11.9); Protein:Creat Ratio 216 mg/g CRE (0-200)
[2018-07-02 21:56] VITALS: BP 149/72; PULSE 86; RESP 18; O2SAT 98
[2018-07-02 22:32] VITALS: BP 147/81; PULSE 84; RESP 17; O2SAT 96
== END 2018-07-02 22:32 | disposition home or self-care (01) ==
PROVIDERS: Emergency Provider Emergency Medicine; Family Provider Pediatrics; PCP Pediatrics
DX: O13.5 Gestational [pregnancy-induced] hypertension without significant proteinuria, complicating the puerperium (principal); Z79.899 Other long term (current) drug therapy; Z86.2 Personal history of diseases of the blood and blood-forming organs and certain disorders involving the immune mechanism
CPT/HCPCS: 80048; 80076; 81001; 82570; 84156; 84550; 85025; 99283; A4216

== ENCOUNTER 2019-03-13 17:59 | Emergency (ER) | payer MEDICAID, SELFPAY ==
[2019-03-13 18:00] VITALS: BP 152/88; PULSE 78; RESP 16; TEMP 36.6; O2SAT 99; BMI 62.9
--- NOTE | 2019-03-13 18:22 | EKG12_ITS ---
Test Reason : SOB Blood Pressure : / mmHG Vent. Rate : 071 BPM Atrial Rate : 071 BPM P-R Int : 176 ms QRS Dur : 104 ms QT Int : 380 ms P-R-T Axes : 029 043 039 degrees QTc Int : 412 ms Normal sinus rhythm Normal ECG Confirmed by PER SHARMA, LOU ([id number]), web editor ALLISON LANTIGUA ([id number]) on 03/15/2019 10:50:04 AM Referred By: DR MARLEY Confirmed By:LOU ALBARADO MD
--- NOTE | 2019-03-13 18:23 | ED.DCSUM_ITS ---
History of Present Illness Chief Complaint: Shortness of Breath Informant: Patient Onset: Today Narrative: Patient states she is felt short of breath since this morning. It was better until about an hour or 2 ago, when she started having substernal chest pressure that is nonpleuritic, no radiation, even with rest she feels short of breath, talking and exerting herself makes it feel worse. She has no history of asthma or obvious reason to be dyspneic. She states that she has had diarrhea loose stools 5 or 6 times a day for the past 8 months. Denies any blood or melena. Crampy periumbilical abdominal pain off and on since then as well. Additionally she has been having right knee pain for 3 months since she had 3 different falls onto it, it has not gotten better. She also states that for the past 8 months since she had her baby by she has had vaginal bleeding that usually is very mild. She saw her certified medical transcriptionist 3 months ago and was told it will go away. She states that has not but she has not been back to see them. She states she was seen at pulmonary in hospital last night for the abdominal symptoms and had bloodwork and a CT of the abdomen/pelvis that did not show anything according to her. Patient denies any recent travel, hospitalization or surgery since her 8 months ago, no history of DVT or PE. No swelling in her legs or calf pains. She has not been coughing or having any fevers lately. - Past Medical History (1) Depression with anxiety Status: Chronic (2) Cystic fibrosis carrier Status: Chronic (3) Gestational HTN Status: Chronic (4) Nexplanon insertion Status: Chronic Past Medical History - Allergies and Home Meds Allergies/Adverse Reactions: Allergies No Known Allergies Allergy (Verified 03/13/19 18:00) Primary Care Physician: Kassandra Coughlin MD [STAFF PHYSICIAN] - 3-5 Days Smoking Status: Never smoker Drugs: None Review of Systems General: Denies: Chills, Fever, Sweats Eyes: Denies: Visual changes - bilaterally, Diplopia ENT: Denies: Bilateral ear pain, Rhinorrhea, Sore throat Cardiovascular: Reports: Chest pain. Denies: Palpitations, Heart racing Respiratory: Reports: Dyspnea. Denies: Cough, Sputum, Dyspnea on exertion, Orthopnea Gastrointestinal: Reports: Abdominal pain, Nausea, Vomiting - once earlier CERAMIC WORKER in ED, Diarrhea. Denies: Melena, Hematochezia Genitourinary: Denies: Dysuria, Hematuria, Frequency Musculoskeletal: Reports: Extremity Pain. Denies: Back pain, Swelling Skin: Denies: Rash, Wounds Neurological: Denies: Headache, Weakness, Parasthesia, Numbness Physical Exam Vital Signs/Narrative: Vital Signs Temp Pulse Resp BP Pulse Ox 03/13/19 18:00 97.8 F 78 16 152/88 H 99 General: Well nourished, Well developed, Obese - morbidly, No Acute Distress Head: Normocephalic, Atraumatic Eyes: Perrl, EOMI ENT: Moist mucous membranes, No rhinorrhea Neck: Supple, Nontender Cardiovascular: Regular rate, Regular rhythm, No murmurs, Normal S1, Normal S2. Negative for: Tachycardia Respiratory: No distress, CTA bilaterally, Chest nontender Abdomen: Soft, Nondistended, Normal bowel sounds, Tender - Diffusely. Negative for: Guarding, Rebound tenderness Back: Nontender, Normal Inspection. Negative for: CVA tenderness Extremities: No edema, Tenderness - At right patellar ligament and mildly at tibial tuberosity. Extensor mechanism intact. All ligaments stable. No effusion. Exam limited by obesity., - - No palpable cords in either extremity. Negative for: Calf Tenderness Skin: Normal color, No rash Neurological: Alert, Oriented x3, Cranial nerves II-XII grossly intact, Normal Strength, Normal Sensation Psychological: Normal Mood, - - mildly anxious Diagnostic/Tx/Re-eval Impressions Knee X-Ray 03/13/19 18:27 IMPRESSION: No fracture or dislocation. Electronically Signed: Lakhwinder Garner, at 19:38 EDT Tel , Service support , Chest X-Ray 03/13/19 19:10 IMPRESSION: No acute thoracic pathology. Electronically Signed: Lakhwinder Garner, at 19:36 EDT Tel , Service support , 03/13/19 18:27 Knee 4 or More Views [RAD] Stat 03/13/19 19:10 Chest PA and Lateral [RAD] Stat Laboratory Results 03/13/19 03/13/19 18:58 18:58 D-Dimer Quant (PE/DVT) < 0.27 L Troponin I < 0.015 - Rhythm Strip Rhythm Strip: Sinus Rhythm Rate: 70 Ectopy: None - EKG Initial EKG Interpretation: Sinus Rhythm, No Acute Injury Pattern - Normal EKG - Medical Decision Making Patient was feeling no better after albuterol aerosol, and actually made her chest hurt worse so we did not do any more of those, however her vital signs remained stable. A d-dimer was obtained and it is within normal limits, ruling out pulmonary embolus as cause for her symptoms. Troponin was actually obtained as well, ruling out myocarditis, coronary issues, not unexpected given her normal EKG. Chest x-ray is normal. She was given a GI cocktail to see if that help with her discomfort given the possibility of esophageal etiology, she actually had resolution of her symptoms afterwards. I did obtain records from pulmonary and that showed a normal CBC, CMP, and CT of the abdomen pelvis which was read as normal, no acute abnormality. She had a urinalysis that showed micro scopic hematuria and 11-25 white blood cells, they treated this as a possible infection, she had 25 leukocyte esterase and negative nitrite. She was prescribed Zofran, Bactrim, Bentyl for abdominal symptoms and advised to follow-up with PCP. I advised the same, and added a daily PPI. Do not think she needs further emergent work-up for these thoracic symptoms at this time. ED Disposition - Plan for ED Patient: Disposition: Home or Assisted Living Diagnosis: Chest pain, unspecified, Dyspnea, Intermittent periumbilical abdominal pain, Contusion of right knee Instructions: ABDOMINAL PAIN, Unknown Cause, (Female), CHEST PAIN, NonCardiac Prescriptions: Omeprazole 1 cap PO DAILY #30 capsule. Transmission Status: Received by [id number] Referrals: Kassandra Coughlin MD [STAFF PHYSICIAN] - 3-5 Days
--- NOTE | 2019-03-13 18:27 | RAD_ITS ---
STUDY: X-RAY - RIGHT KNEE REASON FOR EXAM: Female, 19 years old. Right knee pain TECHNIQUE: 4 view(s) of the knee. COMPARISON: None. FINDINGS: There is no evidence of fracture or dislocation. There are no significant degenerative changes. There are no radiodense foreign bodies. RAD/Knee 4 or More Views IMPRESSION: No fracture or dislocation. Electronically Signed: Lakwhinder Garner, at 19:38 EDT Tel , Service support ,
[2019-03-13 18:45] VITALS: RESP 16
[2019-03-13] MEDS: Albuterol 2.5 MG/3 ML VIAL.NEB. INHALATION (18:47)
[2019-03-13 18:49] VITALS: PULSE 83; RESP 18
[2019-03-13] MEDS: Ondansetron 4 MG/2 ML Vial IV (18:56)
[2019-03-13] MEDS: 0.9% Normal Saline 1,000 ML 150 ML IV (18:56)
--- NOTE | 2019-03-13 19:10 | RAD_ITS ---
STUDY: X-RAY CHEST REASON FOR EXAM: Female, 19 years old. Chest pain TECHNIQUE: PA and lateral views of the chest COMPARISON: None. FINDINGS: The lungs are clear. There are no pleural effusions. There is no pneumothorax. The heart is normal in size. The visualized osseous structures are within normal limits. RAD/Chest PA and Lateral IMPRESSION: No acute thoracic pathology. Electronically Signed: Lakhwinder Garner, at 19:36 EDT Tel , Service support ,
[2019-03-13 19:34] LABS: D-Dimer Quantitative (DVT/PE) < 0.27 FEU/ug/m (0.27-0.49)
[2019-03-13] MEDS: Mag Hydrox/Al Hydrox/Simeth 30 ML UDC PO (20:03)
[2019-03-13 20:48] VITALS: BP 125/59; PULSE 77; RESP 16; O2SAT 100
--- NOTE | 2019-03-13 20:49 | ED.RN ---
REVIEWED D/C INSTRUCTIONS, FOLLOW UP CARE, AND S/S THAT WOULD WARRANT A RETURN TO THE ED WITH PT. PT VERBALIZED AN UNDERSTANDING AND DENIES FURTHER QUESTIONS FOR THIS RN. PT SKIN P/W/D, RESP EVEN AND UNLABORED, PT A&O X 3, NO DISTRESS NOTED. PT AMBULATED OUT OF ED, GAIT STEADY.
== END 2019-03-13 20:50 | disposition home or self-care (01) ==
PROVIDERS: Emergency Provider Emergency Medicine
DX: R07.9 Chest pain, unspecified (principal); R06.00 Dyspnea, unspecified; R10.33 Periumbilical pain; R19.7 Diarrhea, unspecified; R31.29 Other microscopic hematuria; S80.01XA Contusion of right knee, initial encounter; W19.XXXA Unspecified fall, initial encounter; Y93.9 Activity, unspecified; Y92.9 Unspecified place or not applicable; Y99.9 Unspecified external cause status; F32.9 Major depressive disorder, single episode, unspecified; F41.9 Anxiety disorder, unspecified; Z79.899 Other long term (current) drug therapy
CPT/HCPCS: 71046; 73564; 84484; 85379; 93005; 94640; 96361; 96374; 99283; J7030; A4216; J2405

== ENCOUNTER 2020-06-15 22:59 | Emergency (ER) | payer SELFPAY ==
[2020-06-15 23:01] VITALS: BP 154/89; PULSE 103; RESP 20; TEMP 36.9; O2SAT 96; BMI 72.1
[2020-06-15 23:08] VITALS: O2SAT 98
--- NOTE | 2020-06-15 23:14 | RAD_ITS ---
STUDY: X-RAY CHEST REASON FOR EXAM: Female, 20 years old. New-onset of chest pain. TECHNIQUE: AP portable chest. COMPARISON: March 13, 2019. FINDINGS: The lungs are clear and expanded. There is no demonstrated pleural abnormality. Normal size heart. Normal mediastinum and fritz. Normal visualized pulmonary arteries. Normal visualized aortic arch and descending thoracic aorta. Normal visualized thoracic spine. Normal visualized ribs, clavicles, and shoulders. There is no demonstrated abnormality of the visualized soft tissue structures of the upper abdomen. RAD/Chest 1 View (Portable) IMPRESSION: Normal x-ray examination of the chest. Electronically Signed: Jose Paiz MD at 23:35 EDT , Service support ,
--- NOTE | 2020-06-16 | EKG12_ITS ---
Test Reason : SOB Blood Pressure : / mmHG Vent. Rate : 097 BPM Atrial Rate : 097 BPM P-R Int : 170 ms QRS Dur : 100 ms QT Int : 362 ms P-R-T Axes : 044 044 042 degrees QTc Int : 459 ms Normal sinus rhythm Normal ECG Confirmed by MIRZA SHARMA, MONICA ([id number]), department editor ALLISON LANTIGUA ([id number]) on 06/18/2020 11:23:31 AM Referred By: ANTHONY Confirmed By:MONICA BLUE MD
[2020-06-16 00:29] LABS: Absolute Lymphocyte Count 1.82 X10^3/uL (0.83-4.51); Absolute Neutrophil Count 5.2 X10^3/uL (2.0-7.7); Basophil# 0.02 X10^3/uL; Basophil% 0.3 % (0-1); Eosinophil# 0.09 X10^3/uL; Eosinophils% 1.2 % (0-5); Hematocrit 37.4 % (37-47); Hemoglobin 12.2 g/dL (12.0-15.0); Lymphocyte # 1.82 X10^3/ul (4.0); Lymphocyte % 23.8 % (19-41); Mean Corp Hgb Conc 32.6 g/dL (32-36); Mean Corpuscular Hgb 27.1 pg (27.0-32.0); Mean Corpuscular Volume 83.1 fL (81-99); Mean Platelet Vol. 10.7 fl (6.2-12.0); Monocyte# 0.47 X10^3/uL; Monocyte% 6.1 % (0-10); NRBC Flagged by Analyzer 0 % (0-5); Neutrophil # 5.23 X10^3/uL (2.7-7.7); Neutrophil % 68.3 % (47-70); Platelet Count 284 K/mm3 (150-450); RBC Distribution Width CV 13.5 % (11.6-14.6); RBC Distribution Width SD 40.7 fl (35.1-43.9); White Blood Count 7.7 K/mm3 (4.4-11.0)
[2020-06-16 00:37] LABS: Anion Gap 5 (5-15); BUN 13 mg/dL (7-18); BUN/Creat Ratio 16.7 RATIO (10-20); Calcium,Total 8.7 mg/dL (8.5-10.1); Chloride 107 mmol/L (98-107); Creatinine, Serum 0.78 mg/dL (0.55-1.02); EST Glomerular Filtration Rate 98 mL/min (>60); Est Glom Filt Rate - Afr Amer 119 mL/min (>60); Estimated Creatinine Clearance 105.91 ml/min; Glucose 101 mg/dL (74-106); Potassium 3.7 mmol/L (3.5-5.1); Sodium Level 139 mmol/L (136-145)
--- NOTE | 2020-06-16 00:46 | ED.VISSUMM ---
- ER Visit Summary Date of Service: 06/16/20 Chief Complaint: Chest pain History of Present Illness: The patient is a 20 F who presents with chest pain that began today. Patient describes it as a heaviness. Patient states it is worse with movement. Patient states nothing seems to help with it. Patient states her pain is gradually gotten worse throughout the day. Patient denies any history of coronary artery disease. Patient denies any hypertension or diabetes. Patient denies any history of hypercholesterolemia or family history of coronary artery disease. Patient is not a smoker. Patient admits to some mild shortness of breath but denies any cough. Patient denies any palpitations. Patient denies any fevers or chills. Patient denies any sweats. Physical Examination: Vital signs are stable. Patient is afebrile. Patient is in no acute distress. Oral mucosa is pink and moist. Neck is supple. Trachea is midline. There is no JVD noted. Heart was regular rate and rhythm. Lungs are clear and equal bilaterally. Abdomen is soft. Bowel sounds are normal. There is no tenderness. There is no rebound or guarding noted. Skin is warm dry. Cranial nerves II through XII are intact. There are no focal motor or sensory deficits noted. Extremities are intact. There is no calf tenderness or edema. Test Results: EKG showed normal sinus rhythm with a rate of 97. There are no acute ST or T wave changes. CBC, basic metabolic profile, troponin were obtained and were within normal limits. Portable chest x-ray was obtained. There is no acute cardiopulmonary process. This was interpreted by the radiologist and reviewed by myself. Emergency Department Course and Treatment: Patient was advised of her findings. Patient was feeling better on reevaluation. Patient was instructed to follow-up with her primary care physician in 5 to 7 days. Patient understood and was agreeable with the plan. All questions were answered. Disposition: Discharge home Impression: Chest pain This note was generated with [employer] dictation software. It may contain incorrect words, spelling, and punctuation that were not noted in review of the chart prior to signing ED Disposition - Plan for ED Patient: Disposition: Home or Assisted Living Diagnosis: Chest pain of uncertain etiology Instructions: ED Chest Pain Atypical Unkn Cause Referrals: Marietta Rudolph [NON-STAFF] - 5-7 Days
[2020-06-16 01:10] VITALS: PULSE 80; RESP 16; O2SAT 98
== END 2020-06-16 01:10 | disposition home or self-care (01) ==
PROVIDERS: Emergency Provider Emergency Medicine
DX: R07.9 Chest pain, unspecified (principal); E66.9 Obesity, unspecified; Z68.45 Body mass index [BMI] 70 or greater, adult
CPT/HCPCS: 71045; 80048; 84484; 85025; 93005; 99284; A4216